=== PATIENT | female | born 1975 | race African-American/Black ===

== ENCOUNTER 2017-09-03 04:59 | Inpatient (IN) | payer BC ==
[2017-09-03 06:03] LABS: URINE HCG POC HCG NEGATIVE (Negative)
[2017-09-03] MEDS: IV NORMAL SALINE 1000ML BAG 1,000 ML IV (06:08)
[2017-09-03] MEDS: diphenhydrAMINE 50 MG/ML VIAL IVP ×2 (06:09→17:05)
[2017-09-03] MEDS: METOCLOPRAMIDE HCL 10 MG/2 ML VIAL. IV (06:09)
[2017-09-03 06:12] LABS: ADD MAN DIFF? NO
[2017-09-03 06:17] LABS: BILIRUBIN,URINE NEGATIVE (NEG); CLARITY,URINE CLEAR; COLOR,URINE YELLOW; GLUCOSE,URINE NEGATIVE (NEG); NITRITE,URINE NEGATIVE (NEG); PROTEIN,URINE NEGATIVE (NEG-TRACE); UROBILINOGEN,URINE 0.2 mg/dL (0.2 mg/dL)
[2017-09-03 06:28] LABS: ANION GAP 13 (6-14); BLOOD UREA NITROGEN 10 mg/dL (7-20); CALCIUM 8.5 mg/dL (8.5-10.1); CARBON DIOXIDE 24 mmol/L (21-32); CHLORIDE 102 mmol/L (98-107); CREATININE 0.5 mg/dL (0.6-1.0); GFR 166.2; GLUCOSE 95 mg/dL (70-99); POTASSIUM 4.1 mmol/L (3.5-5.1); SODIUM 139 mmol/L (136-145)
[2017-09-03 06:40] LABS: BACTERIA,URINE 0 /HPF (0-FEW); RBC,URINE 0 /HPF (0-2); SQUAMOUS EPITHELIAL CELL,UR MOD /LPF; WBC,URINE OCC /HPF (0-4)
[2017-09-03 06:57] LABS: BASO % 1 % (0-3); EOS # 0.1 x10^3/uL (0.0-0.7); EOS % 1 % (0-3); LYMPH # 1.6 x10^3/uL (1.0-4.8); LYMPH % 25 % (24-48); MEAN CORPUSCULAR HEMOGLOBIN 17 pg (25-35); MEAN CORPUSCULAR HGB CONC 28 g/dL (31-37); MEAN CORPUSCULAR VOLUME 59 fL (79-100); MONO # 0.5 x10^3/uL (0.0-1.1); MONO % 9 % (0-9); NEUT # 4.2 x10^3uL (1.8-7.7); NEUT % 65 % (31-73); PLATELET COUNT 860 x10^3/uL (140-400); RED CELL DISTRIBUTION WIDTH 27.5 % (11.5-14.5); WHITE BLOOD COUNT 6.4 x10^3/uL (4.0-11.0)
[2017-09-03 07:02] LABS: HEMATOCRIT 17.8 % (36.0-47.0)
[2017-09-03] MEDS ORDERED: diphenhydrAMINE ORAL ELIXIR 12.5 MG/5 ML ML PO (07:30)
[2017-09-03] MEDS ORDERED: ACETAMINOPHEN 325 MG TABLET. PO (07:30)
[2017-09-03] MEDS: MAGNESIUM SULFATE 2GM 50 ML IV (07:40)
[2017-09-03] MEDS ORDERED: CONTRAST GIVEN MC (07:45)
[2017-09-03] MEDS: IOHEXOL 300 MG/ML 100ML VIAL. IV (07:45)
[2017-09-03 08:58] LABS: FECAL OB PT POSITIVE (NEG); NEG OBC FOB NEG; POS OBC FOB POS
[2017-09-03 09:20] LABS: IMMEDIATE SPIN CROSSMATCH 1 2
[2017-09-03 13:07] LABS: PLT ESTIMATE INCREASED (ADEQUATE)
[2017-09-03 13:08] LABS: ANISOCYTOSIS MARKED; HYPOCHROMIA MARKED; MICROCYTOSIS MARKED
[2017-09-03] MEDS: ONDANSETRON PF 4 MG/2 ML VIAL. IV (13:16)
[2017-09-03 13:20] LABS: % SAT IRON 2 % (15-34); IRON,SERUM 8 ug/dL (50-170)
[2017-09-03 13:26] LABS: RETIC COUNT 0.6 % (0.5-2.5)
[2017-09-03 13:33] LABS: FERRITIN 1 ng/mL (8-252)
[2017-09-03] MEDS: IRON SUCROSE COMPLEX 500 MG in IV NORMAL SALINE 250ML 250 ML IV (14:38)
[2017-09-03 14:55] LABS: VITAMIN-B12 434 pg/mL (247-911)
[2017-09-03 14:56] LABS: FOLATE 9.91 ng/ml (3.2-20.0)
[2017-09-03] MEDS: methylPREDNISolone SOD SUCC PF 125 MG/2 ML VIAL. IV (17:52)
[2017-09-03] MEDS: FAMOTIDINE 20 MG/2 ML VIAL IVP (17:53)
[2017-09-03] MEDS: LACTOBACILLUS RHAMNOSUS GG 1 CAPSULE. PO (21:19)
[2017-09-04] MEDS: LACTOBACILLUS RHAMNOSUS GG 1 CAPSULE. PO (09:00)
[2017-09-04] MEDS ORDERED: POLYETHYLENE GLYCOL 3350 17 GM PACKET. PO (09:00)
[2017-09-04] MEDS ORDERED: DOCUSATE SODIUM 100 MG CAPSULE. PO (09:00)
[2017-09-04 09:08] LABS: ADD MAN DIFF? NO
[2017-09-04 09:10] LABS: BASO # 0.1 x10^3/uL (0.0-0.2); BASO % 1 % (0-3); EOS % 0 % (0-3); HEMATOCRIT 26.5 % (36.0-47.0); LYMPH # 1.5 x10^3/uL (1.0-4.8); LYMPH % 9 % (24-48); MEAN CORPUSCULAR HEMOGLOBIN 21 pg (25-35); MEAN CORPUSCULAR HGB CONC 30 g/dL (31-37); MEAN CORPUSCULAR VOLUME 68 fL (79-100); MONO # 0.9 x10^3/uL (0.0-1.1); MONO % 5 % (0-9); NEUT # 13.6 x10^3uL (1.8-7.7); NEUT % 85 % (31-73); PLATELET COUNT 749 x10^3/uL (140-400); RED BLOOD COUNT 3.89 x10^6/uL (3.50-5.40); RED CELL DISTRIBUTION WIDTH 33.6 % (11.5-14.5)
[2017-09-04] MEDS: FERROUS SULFATE 325 MG TABLET. PO (10:51)
== END 2017-09-04 13:10 | disposition home or self-care (01) | DRG 760 ==
LOC: ER 04:59 → ED HOLD 07:14 → 4 NORTH 12:47
PROC: 30233N1 Transfusion of Nonautologous Red Blood Cells into Peripheral Vein, Percutaneous Approach (ICD-10-PCS; principal; 2017-09-03)
DX: D25.9 Leiomyoma of uterus, unspecified (principal); N39.0 Urinary tract infection, site not specified; D50.0 Iron deficiency anemia secondary to blood loss (chronic); N92.0 Excessive and frequent menstruation with regular cycle; R79.89 Other specified abnormal findings of blood chemistry; Z83.3 Family history of diabetes mellitus; Z88.8 Allergy status to other drugs, medicaments and biological substances
CPT/HCPCS: 36415; 70450; 70496; 70498; 76856; 80048; 81001; 81025; 82274; 82607; 82728; 82746; 83540; 83550; 85025; 85045; 86850; 86900; 86901; 86920; 87086; 96365; 96367; 96375; 99285; 99285-25; J1200; J1756; J1956; J2405; J2765; J2930; J7030; J7050; J7060; P9016; S0028